=== PATIENT | female | born 1970 | race Native Hawaiian/Other Pacific Islander ===

== ENCOUNTER 2022-04-18 19:26 | Emergency (ER) | payer OTHER ==
[~2022-04-18] VITALS: Ht 160 cm; Wt 59.9 kg
[2022-04-18 21:05] VITALS: BP 112/72; TEMP 97.9
== END 2022-04-18 21:05 | disposition home or self-care (01) ==
LOC: ED 19:26
DX: M54.59 Other low back pain (principal)
CPT/HCPCS: 96372; 99283; J2270